=== PATIENT | male | born 1955 | race Caucasian/White ===

== ENCOUNTER 2020-10-04 12:49 | Outpatient (REF) | payer OTHER, SELFPAY ==
[2020-10-12 15:12] LABS: Renin 3.91 ng/mL/h (0.25-5.82)
== END 2020-10-04 12:50 | disposition home or self-care (01) ==
LOC: HO.LAB 12:49
PROVIDERS: PCP Internal Medicine; Visit Provider Radiology Diagnostic Ultrasound
DX: I15.8 Other secondary hypertension (principal)
CPT/HCPCS: 36415; 82088; 84244

== ENCOUNTER 2021-08-18 06:28 | Day surgery (SDC) | payer OTHER, SELFPAY ==
[2021-08-12 12:13] VITALS: BMI 29.8
--- NOTE | 2021-08-15 08:21 | HO.ANESPROP2 ---
Documented by User: Veronica Dominguez NP 08/15/21 08:21 HPI - Anesthesia Eval Consult details Narrative: 65yo M for Upper Endoscopy and Colonoscopy [facility] Past Medical History Medical History Arthritis Asthma Barretts esophagus COVID-19 vaccine series completed GERD (gastroesophageal reflux disease) HTN (hypertension) IBS (irritable bowel syndrome) Seizures Surgical History Surgical History H/O colonoscopy History of esophagogastroduodenoscopy (EGD) History of Esvin fundoplication History of testicular surgery Hx of excision of mass Hx of hand surgery Hx of knee surgery Hx of rotator cuff surgery Social History Social History Are you a primary children's zoo caretaker to a significant other at home: No Do you presently have visiting nurse or other home services: No Patient Tobacco Use Status: Never used Tobacco Use of substances other than those prescribed or required for medical reasons: No Have you been hit, kicked, punched, or otherwise hurt by someone within the past year? If so, by whom?: No Are you DNR?: No Advance Directives: No Advance Directives Information Provided: Yes Advance Directives on File: No Recently lost weight without trying: No Eating poorly because of decreased appetite: No Nutrition Risks: No Nutritional Risk Poor oral hygiene: No Meds Allergies Allergy/AdvReac Type Severity Reaction Status Date / Time Seasonal Allergies Allergy Mild hayfever Verified 08/12/21 11:47 symptoms Home Medications Medication Instructions Recorded Confirmed Last Taken Type albuterol sulfate 90 mcg/actuation 2 puff INHALATION Q4-6H PRN 08/12/21 08/12/21 Unknown History aerosol inhaler (ProAir HFA) aspirin 81 mg tablet,delayed 81 mg PO DAILY 08/12/21 08/18/21 08/09/21 History release (Ecotrin Low Strength) carvedilol 12.5 mg tablet 12.5 mg PO BID 08/12/21 08/18/21 08/18/21 05:20 History hydrochlorothiazide 25 mg tablet 25 mg PO DAILY 08/12/21 08/12/21 Unknown History hyoscyamine sulfate 0.125 mg tablet 0.125 mg PO QID PRN 08/12/21 08/12/21 Unknown History irbesartan 300 mg tablet 300 mg PO DAILY 08/12/21 08/12/21 Unknown History loratadine 10 mg tablet (Claritin) 10 mg PO DAILY PRN 08/12/21 08/12/21 Unknown History multivitamin 1 tab PO DAILY 08/12/21 08/12/21 Unknown History omega-3 fatty acids-vitamin E 1 cap PO DAILY 08/12/21 08/12/21 Unknown History 1,000 mg capsule omeprazole 40 mg capsule,delayed 40 mg PO DAILY PRN 08/12/21 08/12/21 Unknown History release Exam Exam Date and Time: August 15, [id number] Height,Weight and Vital Signs: Height 6 ft 4 in Weight 111.13 kg Assessment and Plan Assessment Anesthesia Assessment: Chart Reviewed Documented by User: Pinky Beckwith MD 08/18/21 07:33 [facility] Past Medical History Medical History Arthritis Asthma Barretts esophagus COVID-19 vaccine series completed GERD (gastroesophageal reflux disease) HTN (hypertension) IBS (irritable bowel syndrome) Seizures Family History Family history of problems with anesthesia: No Surgical History Surgical History H/O colonoscopy History of esophagogastroduodenoscopy (EGD) History of Esvin fundoplication History of testicular surgery Hx of excision of mass Hx of hand surgery Hx of knee surgery Hx of rotator cuff surgery History of Problems with Anesthesia: No Social History Social History Are you a primary children's zoo caretaker to a significant other at home: No Do you presently have visiting nurse or other home services: No Patient Tobacco Use Status: Never used Tobacco Use of substances other than those prescribed or required for medical reasons: No Have you been hit, kicked, punched, or otherwise hurt by someone within the past year? If so, by whom?: No Are you DNR?: No Advance Directives: No Advance Directives Information Provided: Yes Advance Directives on File: No Recently lost weight without trying: No Eating poorly because of decreased appetite: No Nutrition Risks: No Nutritional Risk Poor oral hygiene: No Meds Allergies Allergy/AdvReac Type Severity Reaction Status Date / Time Seasonal Allergies Allergy Mild hayfever Verified 08/12/21 11:47 symptoms Home Medications Medication Instructions Recorded Confirmed Last Taken Type albuterol sulfate 90 mcg/actuation 2 puff INHALATION Q4-6H PRN 08/12/21 08/12/21 Unknown History aerosol inhaler (ProAir HFA) aspirin 81 mg tablet,delayed 81 mg PO DAILY 08/12/21 08/18/21 08/09/21 History release (Ecotrin Low Strength) carvedilol 12.5 mg tablet 12.5 mg PO BID 08/12/21 08/18/21 08/18/21 05:20 History hydrochlorothiazide 25 mg tablet 25 mg PO DAILY 08/12/21 08/12/21 Unknown History hyoscyamine sulfate 0.125 mg tablet 0.125 mg PO QID PRN 08/12/21 08/12/21 Unknown History irbesartan 300 mg tablet 300 mg PO DAILY 08/12/21 08/12/21 Unknown History loratadine 10 mg tablet (Claritin) 10 mg PO DAILY PRN 08/12/21 08/12/21 Unknown History multivitamin 1 tab PO DAILY 08/12/21 08/12/21 Unknown History omega-3 fatty acids-vitamin E 1 cap PO DAILY 08/12/21 08/12/21 Unknown History 1,000 mg capsule omeprazole 40 mg capsule,delayed 40 mg PO DAILY PRN 08/12/21 08/12/21 Unknown History release Exam Height,Weight and Vital Signs: Height 6 ft 4 in Weight 111.13 kg Vital Signs Temp Pulse Resp BP Pulse Ox 08/18/21 06:53 96.7 F L 72 16 151/80 H 96 Airway Mallampati Class: III TM Dist: >3cm Neck ROM: Full Loose/Missing/Broken Teeth: No Heart: RRR Lungs: CTAB Assessment and Plan Assessment Anesthesia Assessment: Anesthesia Plan Discussed Final Anesthetic Review Family History of Problems with Anesthesia: No History of Problems with Anesthesia: No NPO: Yes ASA Class: II Final Preanesthetic Review: No Changes in Pt Med Stat, Meds/Allgs Chart Reviewed, Consent Obtained/Reviewed and Anes Risks/Benef Reviewed Patient Risk: Low Procedure Risk: Low Assessment/Block/Sedation in SS: Assess/Block/Sedation-SS Anesthetic Plan Anesthetic Plan: MAC: Disposition: Standard PACU
[2021-08-18 06:53] VITALS: BP 151/80; PULSE 72; RESP 16; TEMP 35.9; O2SAT 96
[2021-08-18] MEDS: Lactated Ringers 1,000 ML 100 ML IVCONT (06:58)
[2021-08-18 08:38] VITALS: BP 89/42; PULSE 56; RESP 14; TEMP 36.2; O2SAT 97
--- NOTE | 2021-08-18 08:40 | PM.OP ---
Brief Operative Note Date of Service: 08/18/21 Pre-op diagnosis: Rankin's, Screening Post-op diagnosis: other (Hiatal hernia, Diverticulosis) Procedure: EGD with biopsies, Colonoscopy to the cecum and TI Surgeon: Sergei Crooks Anesthesia: MAC Was an Foreign Exchange Services Manager used for this Procedure?: No Estimated blood loss (mL): 2.0 Pathology: other (A. EG Junction at 38cm) Condition: stable Disposition: PACU
[2021-08-18 08:58] VITALS: BP 123/79; PULSE 56; RESP 16; TEMP 36.2; O2SAT 98
--- NOTE | 2021-08-18 09:28 | OP_ITS ---
SURGEON: Sergei Crooks MD INDICATIONS: The patient presents for evaluation of gastroesophageal reflux, Rankin's esophagus, family history of colon cancer, and colorectal cancer screening. Full consent has been obtained from him for both procedures, including risks of bleeding and perforation. PREOPERATIVE DIAGNOSIS: POSTOPERATIVE DIAGNOSIS: PROCEDURE PERFORMED: Esophagogastroduodenoscopy with biopsies, and colonoscopy to the cecum and terminal ileum. ESTIMATED BLOOD LOSS: COMPLICATIONS: ANESTHESIA: Monitored anesthesia care. ASSISTANTS: SPECIMENS: PREOPERATIVE DIAGNOSES: Gastroesophageal reflux, Rankin's esophagus, family history of colon cancer, colorectal cancer screening. POSTOPERATIVE DIAGNOSES: Gastroesophageal reflux, Rankin's esophagus, family history of colon cancer, colorectal cancer screening, small hiatal hernia, sigmoid diverticulosis, internal hemorrhoids. DESCRIPTION OF PROCEDURE: The patient was placed in the left lateral decubitus position. The Olympus video gastroscope was passed in the posterior oropharynx and upper esophagus under direct vision. The scope was passed slowly into the distal esophagus. The gastroesophageal junction appeared at 38 cm. There was some slight irregularity with less than 1 cm areas of possible Rankin's mucosa. There was no esophagitis nor any lesions. There was a small hiatal hernia. The scope was advanced to pylorus and the duodenum was cannulated to the descending portion. The duodenum including the bulb appeared normal without mass or ulceration. The scope was withdrawn back into the stomach. The gastric antrum and body appeared normal with good peristalsis. The scope was retroflexed visualizing the proximal stomach carefully which appeared normal, without any sign of mass or ulceration. The previous fundoplication was still intact. The scope was straightened out and withdrawn back into the esophagus. Biopsies were obtained at the EG junction from the small areas of possible Rankin's mucosa. Proximal to this, the esophageal mucosa appeared normal. The scope was withdrawn from the patient. He was turned around for colonoscopy. The digital rectal exam revealed no abnormalities. The Olympus video pediatric colonoscope was entered into the rectum and advanced easily to the cecum. Once in the cecum, I did identify normal-appearing cecal pouch with appendiceal orifice and a normal-appearing ileocecal valve. The terminal ileum was cannulated and appeared normal. The scope was withdrawn back in the colon. The entire cecum and ileocecal valve appeared normal. The scope was slowly withdrawn assessing all mucosal surfaces carefully. Preparation was excellent. I did not visualize any sign of polyps, colitis, nor angiodysplasia. There was a mild amount of sigmoid diverticulosis. In the rectum, scope was retroflexed visualizing internal hemorrhoids, but no other pathology. The rectal mucosa appeared normal. The scope was straightened out and withdrawn from the patient. He tolerated both procedures well and was returned to the recovery area in stable condition. IMPRESSION: 1. Small hiatal hernia, history of Rankin's esophagus. 2. Diverticulosis. 3. Internal hemorrhoids. PLAN: The results of biopsies will be checked. I would recommend a repeat colonoscopy in 5 years for further screening given the family history of colon cancer in his sibling at an age of 46. If there is no evidence of any dysplasia within the Rankin's esophagus, we could probably wait until 5 years for his next endoscopy as well given the very small area and previous biopsies that were negative for dysplasia as well. This has been discussed with his . He will see me on a p.r.n. basis. MD GUNJAN Conti/[place] / [id number] MTDD
== END 2021-08-18 09:24 | disposition home or self-care (01) ==
PROVIDERS: PCP Internal Medicine; Visit Provider Internal Medicine
PROC: (CPT 45378; principal; 2021-08-18 07:30)
DX: Z12.11 Encounter for screening for malignant neoplasm of colon (principal); Z80.0 Family history of malignant neoplasm of digestive organs; K57.30 Diverticulosis of large intestine without perforation or abscess without bleeding; K64.8 Other hemorrhoids; K58.9 Irritable bowel syndrome, unspecified; K21.9 Gastro-esophageal reflux disease without esophagitis; K22.70 Barrett's esophagus without dysplasia; K44.9 Diaphragmatic hernia without obstruction or gangrene; J45.909 Unspecified asthma, uncomplicated; I10 Essential (primary) hypertension; Z79.82 Long term (current) use of aspirin; Z79.899 Other long term (current) drug therapy
CPT/HCPCS: 45378; 43239; 88305

== ENCOUNTER 2022-05-21 07:21 | Outpatient (REF) | payer OTHER, SELFPAY ==
[2022-05-21 08:10] LABS: Cholesterol 204 mg/dL; HDL Cholesterol 43 mg/dL; LDL Cholesterol Calculated 130 mg/dl; Triglycerides 159 mg/dL
== END 2022-05-21 07:22 | disposition home or self-care (01) ==
LOC: HO.LAB 07:21
PROVIDERS: PCP Internal Medicine; Visit Provider Radiology Diagnostic Ultrasound
DX: E78.00 Pure hypercholesterolemia, unspecified (principal)
CPT/HCPCS: 36415; 80061

== ENCOUNTER 2024-12-29 10:00 | Outpatient (RCR) | payer MEDICARE, OTHER, SELFPAY ==
[2024-11-15 11:09] VITALS: BP 132/63; PULSE 59
== END 2025-01-09 08:40 | disposition home or self-care (01) ==
LOC: HO.PT 10:00
PROVIDERS: PCP Internal Medicine; Visit Provider Physician Assistant
DX: M50.30 Other cervical disc degeneration, unspecified cervical region (principal)
CPT/HCPCS: 97012; 97110; 97140; 97161; 97530